=== PATIENT | male | born 1965 | race Caucasian/White ===

== ENCOUNTER → 2018-11-25 | Outpatient (CLI) | payer OTHER ==
[~2018-11-25] MED LIST: LIDOCAINE 1% MDV 20ML VIAL As Ordered ONE
--- NOTE | 2018-11-25 15:00 | REP ---
CHEST, SINGLE VIEW: Single expiratory view of the chest is performed status post right lung biopsy. There is a tiny right apical pneumothorax. Nodular opacities are again seen in the lungs. There are crowded lung markings in each lung base. There is a right central venous catheter with the tip at the junction of the superior vena cava and right atrium. Electronically Signed by Ambroiso Myers MD 11/25/2018 04:43 P
--- NOTE | 2018-11-26 12:17 | REP ---
CT-guided right upper lobe lung biopsy The procedure is performed by GAVI Lundberg, under the personal supervision of Dr. Myers. The patient has a history of a right lower lobe lung mass. The risks and benefits of the procedure were explained to the patient and informed consent was obtained both orally and written. Directly prior to the start of the procedure, a formal timeout was done in the exam room. The right lower lobe lung was localized using CT guidance. Skin was prepped and draped in the usual sterile fashion. 5 ml of 1% lidocaine was used as a local anesthetic. Using CT guidance and 19/20 gauge coaxial needle biopsy system was inserted and advanced into the nodule. Five core biopsy samples were obtained and sent to the lab. CT images obtained directly after the biopsy show no evidence of pneumothorax. After the appropriate amount of monitored convalescence the patient was discharged from the department. Reviewed by GAVI Martinez 11/25/2018 05:33 P Electronically Signed by Ambrosio Myers MD 11/26/2018 12:08 P
== END ==
LOC: M RADPRO 10:52
PROVIDERS: ATTEND Internal Medicine Pulmonary Disease
DX: C78.01 Secondary malignant neoplasm of right lung (principal); J95.811 Postprocedural pneumothorax; Z85.038 Personal history of other malignant neoplasm of large intestine

== ENCOUNTER 2018-12-23 07:03 | Day surgery (SDC) | payer OTHER ==
[~2018-12-23] VITALS: Ht 186.7 cm; Wt 80.7 kg
[~2018-12-23 07:03] MED LIST changes: +ALBUTEROL SULFATE 2.5 MG/0.5 ML INH NEB SOLN INH ONE; +CETI-36 PO; +HYDR-3713 PO; -LIDOCAINE 1% MDV 20ML VIAL As Ordered ONE; +LIDOCAINE 4% INJ 5 ML AMP NEB ONE; +LOPE2TAB11 PO; +LR 1,000 ML IV SCH; +TRAM50TA2 PO; +VALA1TAB2 PO
[2018-12-23] MEDS ORDERED: THROMBIN SOLN 20,000 UNITS KIT As Ordered ONE (07:13)
[2018-12-23] MEDS ORDERED: LIDOCAINE 1% SDV INJ 30 ML VIAL As Ordered ONE (07:13)
[2018-12-23] MEDS ORDERED: EPINEPHrine 1MG/ML INJ 30ML MD-VIAL As Ordered ONE (07:13)
[2018-12-23] MEDS ORDERED: LIDOCAINE 4% TOPICAL SOLN 50 ML BTL As Ordered ONE (07:13)
[2018-12-23] MEDS ORDERED: MIDAZOLAM INJ 2 MG/2 ML VIAL (J2250) As Ordered ONE (07:14)
[2018-12-23] MEDS ORDERED: LIDOCAINE 2% INJ 100 MG/5 ML SDV (FOR ANES.) As Ordered ONE (07:14)
[2018-12-23] MEDS ORDERED: fentaNYL 100 MCG/2 ML INJECTION (J3010) As Ordered ONE ×2 (07:14→08:15)
[2018-12-23] MEDS ORDERED: PROPOFOL 200 MG/20 ML VIAL As Ordered ONE (07:14)
[2018-12-23] MEDS ORDERED: ONDANSETRON 4MG/2ML VIAL (J2405) As Ordered ONE (07:14)
[2018-12-23] MEDS ORDERED: ROCURONIUM BROMIDE 50 MG/5 ML VIAL As Ordered ONE (07:14)
[2018-12-23] MEDS ORDERED: dexameTHASONE 4 MG/ML 1ML VIAL (J1100) As Ordered ONE (07:14)
[2018-12-23] MEDS ORDERED: LIDOCAINE VISCOUS 2% SOLN 15ML UDC As Ordered ONE (07:14)
[2018-12-23] MEDS ORDERED: CETACAINE SPRAY 5GM As Ordered ONE (07:45)
[2018-12-23] MEDS ORDERED: fentaNYL 100 MCG/2 ML INJECTION (J3010) IV PRN (09:15)
[2018-12-23] MEDS ORDERED: LR 1,000 ML IV SCH (09:15)
[2018-12-23] MEDS ORDERED: ONDANSETRON 4MG/2ML VIAL (J2405) IV PRN (09:15)
[2018-12-23] MEDS ORDERED: SODIUM CHLORIDE 0.9% INJ 10 ML SYR IV PRN (09:15)
[2018-12-23] MEDS ORDERED: PERCOCET 5MG/325MG TAB PO PRN (09:15)
--- NOTE | 2018-12-23 09:18 | REP ---
Clinical: Postoperative assessment. Comparison: 11/25/2018. Findings: Mediastinum and cardiac silhouette are normal. [id number] identified with tip in the SVC. Lung angela demonstrate chronic interstitial changes. No consolidation, effusion, or pneumothorax. Skeletal structures are intact. Impression: No acute cardiopulmonary process or focal consolidation. Electronically Signed by Vadim Haas MD 12/23/2018 09:10 A
[2018-12-23 09:50] VITALS: BP 130/75
--- NOTE | 2018-12-23 19:20 | RO ---
DATE OF PROCEDURE: 12/23/2018 PREOPERATIVE DIAGNOSES: Mediastinal and right hilar adenopathy, unknown etiology in a patient with rectal cancer. POSTOPERATIVE DIAGNOSES: Mediastinal and right hilar adenopathy, unknown etiology in a patient with rectal cancer. PROCEDURE: Bronchoscopy, endobronchial ultrasound (EBUS) with right precarinal fine needle aspirate biopsy. SURGEON: Dr. Gomez Kerr SUPERVISOR SOAKERS: Dr. Jone Cross ANESTHESIA: General. DESCRIPTION OF PROCEDURE: Procedure explained and consent obtained. [place] procedure was followed. Mr. Dos Santos was intubated and pain and sedation was managed by anesthesia. A conventional bronchoscope was initially entered into the endotracheal tube and the left and right lungs were examined. No endobronchial processes. Normal appearing mucosa. Following this, the EBUS scope was introduced into the trachea. The right precarinal lymph node was identified and multiple specimens were taken from this site. Two of the specimens were examined by cytology and confirmed we were in a good location. After enough specimens were taken to form a core, the EBUS scope was removed. The conventional bronchoscope was then replaced and the lungs were examined. A small amount of heme was noted, which was evacuated. The conventional bronchoscope was then withdrawn. Tolerated well. Postoperative chest x-ray pending. FINDINGS: 1. Normal anatomy and mucosa. SPECIMENS: Multiple right precarinal lymph node fine needle aspirates were taken and sent to cytology. Specific request was made for KRAS and BRAF. [facility]
== END 2018-12-23 10:22 | disposition home or self-care (01) ==
LOC: M SDC 07:03
PROVIDERS: ATTEND Internal Medicine Pulmonary Disease
DX: C77.3 Secondary and unspecified malignant neoplasm of axilla and upper limb lymph nodes (principal); C20 Malignant neoplasm of rectum; R91.8 Other nonspecific abnormal finding of lung field; R05 Cough; G60.0 Hereditary motor and sensory neuropathy; F17.210 Nicotine dependence, cigarettes, uncomplicated; F17.220 Nicotine dependence, chewing tobacco, uncomplicated; Z79.899 Other long term (current) drug therapy; Z92.23 Personal history of estrogen therapy
CPT/HCPCS: 31652; 71045; 88173; 88305; 88313; J1100; J2250; J2405; J3010